=== PATIENT | male | born 1980 | race Caucasian/White ===

== ENCOUNTER 2018-01-29 08:34 | Emergency (ER) | payer MEDICAID ==
[~2018-01-29] VITALS: Ht 180.3 cm; Wt 90.9 kg
[2018-01-29 08:45] VITALS: Ht 180.3 cm; Wt 90.9 kg
[2018-01-29] MEDS ORDERED: EFFEXOR50 MG PO (08:46)
[2018-01-29] MEDS ORDERED: PRINIVIL10 MG PO (08:47)
[2018-01-29] MEDS ORDERED: BACLOFEN10 MG PO (08:47)
[2018-01-29] MEDS ORDERED: NEURONTIN800 MG PO (08:47)
[2018-01-29] MEDS ORDERED: FLUTICASONE PRO16 GM NASAL (08:48)
[2018-01-29 09:22] LABS: APPEARANCE CLEAR (CLEAR); BILIRUBIN NEGATIVE (NEGATIVE); COLOR YELLOW (YELLOW); GLUCOSE NEGATIVE (NEGATIVE); KETONE MODERATE mg/dL (NEGATIVE); NITRITE NEGATIVE (NEGATIVE); PROTEIN NEGATIVE (NEGATIVE); UROBILINOGEN NORMAL (NORMAL)
[2018-01-29 09:32] LABS: UDS - AMPHET POSITIVE QUAL (NEGATIVE); UDS - BARB NEGATIVE QUAL (NEGATIVE); UDS - BENZO NEGATIVE QUAL (NEGATIVE); UDS - COCAINE NEGATIVE QUAL (NEGATIVE); UDS - OPIATE NEGATIVE QUAL (NEGATIVE); UDS - PCP NEGATIVE QUAL (NEGATIVE); UDS - THC NEGATIVE QUAL (NEGATIVE)
[2018-01-29 09:38] LABS: BASOPHILS 0.5 % (0-2); EOSINOPHILS 1.3 % (0-7); HEMATOCRIT 41.3 % (42.0-54.0); IMMATURE GRANULOCYTES 0.6 % (0-5); LYMPHOCYTES 22.4 % (15-50); MCH 30.4 pg (26.0-34.0); MCHC 36.3 g/dL (31.0-37.0); MCV 83.8 fL (80.0-100.0); MEAN PLATELET VOLUME 10.8 fL (7.4-10.4); MONOCYTES 11.5 % (2-11); NEUTROPHILS 63.7 % (40-80); PLATELET COUNT 231 10x3/uL (130-400); RBC 4.93 10x6/uL (4.20-6.10); RDW 12.5 % (11.5-14.5); WBC 8.8 10x3/uL (4.8-10.8)
[2018-01-29 09:53] LABS: ALBUMIN 4.2 g/dL (3.4-5.0); ALKALINE PHOSPHATASE 99 U/L (46-116); ALT (SGPT) 36 U/L (10-68); BILIRUBIN - TOTAL 1.04 mg/dL (0.2-1.3); CALC OSMOLALITY 276 mosm/kg (275-300); CALCIUM 8.9 mg/dL (8.5-10.1); CARBON DIOXIDE 23.2 mmol/L (21.0-32.0); CHLORIDE - SERUM 103 mmol/L (98-107); GLUCOSE 107 mg/dL (74-106); POTASSIUM - SERUM 3.3 mmol/L (3.5-5.1); PROTEIN - SERUM 7.8 g/dL (6.4-8.2); SODIUM 138 mmol/L (136-145); UREA NITROGEN 15 mg/dL (7-18); eGFR NON AFRICAN AMERICAN 88 mL/min (90-120)
[2018-01-29 17:44] VITALS: BP 139/92
== END 2018-01-29 21:03 | disposition other institution (70) ==
LOC: D.ER 08:34
PROVIDERS: Family Medicine
DX: R45.851 Suicidal ideations (principal); F32.9 Major depressive disorder, single episode, unspecified; I10 Essential (primary) hypertension; F17.200 Nicotine dependence, unspecified, uncomplicated